=== PATIENT | female | born 1980 | race Caucasian/White ===

== ENCOUNTER 2021-10-06 13:01 | Outpatient (CLI) | payer OTHER | END 2021-10-06 13:47 | disposition home or self-care (01) | LOC: NST 13:01 | PROVIDERS: ATTEND Obstetrics & Gynecology | DX: Z34.83 Encounter for supervision of other normal pregnancy, third trimester (principal) ==

== ENCOUNTER 2021-11-25 13:00 | Inpatient (IN) | payer OTHER ==
[~2021-11-25] VITALS: Ht 160 cm; Wt 89.8 kg
[2021-12-02] MEDS ORDERED: ZYRTEC10 M3 PO (06:31)
[2021-12-02] MEDS ORDERED: PRENATAL TABLE1 EAC3 PO (06:31)
[2021-12-02] MEDS ORDERED: SINGULAIR10 MG PO (06:31)
== END 2021-12-04 13:13 | disposition home or self-care (01) | DRG 807 ==
LOC: LDR 12-02 05:25 → OB/GYN 12-02 05:25 → LDR 12-14 13:00
PROVIDERS: ADMIT Obstetrics & Gynecology; ATTEND Obstetrics & Gynecology
PROC: 10E0XZZ Delivery of Products of Conception, External Approach (ICD-10-PCS; principal; 2021-12-02)
PROC: 4A1HXCZ Monitoring of Products of Conception, Cardiac Rate, External Approach (ICD-10-PCS; 2021-12-02)
DX: O80 Encounter for full-term uncomplicated delivery (principal); Z37.0 Single live birth; Z3A.38 38 weeks gestation of pregnancy; Z20.822 Contact with and (suspected) exposure to COVID-19

== ENCOUNTER 2021-11-27 15:46 | Outpatient (CLI) | payer OTHER | END 2021-11-28 07:27 | disposition home or self-care (01) | LOC: NST 15:46 | PROVIDERS: ATTEND Obstetrics & Gynecology Maternal & Fetal Medicine | DX: Z34.83 Encounter for supervision of other normal pregnancy, third trimester (principal) ==

== ENCOUNTER 2022-01-06 07:56 | Day surgery (SDC) | payer OTHER ==
[~2022-01-06 07:56] MED LIST: PRENATAL TABLE1 EAC3 PO; SINGULAIR10 MG PO; ZYRTEC10 M3 PO
== END 2022-01-06 15:40 | disposition home or self-care (01) ==
LOC: CIR.AMB 07:56
PROVIDERS: ATTEND Obstetrics & Gynecology
DX: Z30.2 Encounter for sterilization (principal); N83.8 Other noninflammatory disorders of ovary, fallopian tube and broad ligament; Z91.013 Allergy to seafood; J45.909 Unspecified asthma, uncomplicated; Z86.16 Personal history of COVID-19